=== PATIENT | female | born 1970 | race Hispanic/Latino ===

== ENCOUNTER 2017-04-26 19:19 | Emergency (ER) | payer SELFPAY ==
[~2017-04-26] VITALS: Ht 162.6 cm; Wt 89.1 kg
[2017-04-26 19:25] VITALS: BP 172/82; PULSE 65; RESP 15; O2SAT 100
--- NOTE | 2017-04-26 19:37 | ED.REPORT ---
HPI-Extremity Problem Lower Date of Service Apr 26, 2017 ED Provider: Ramiro Gilbert MD Pt is a 47 year old female with a recent fatty mass tissue removal in her left leg on 04/06/17 who presents to the ED c/o increasing leg redness at the site of her wound onset 3 days ago. She states that her scar was healing nicely up until a few days ago when it seemed like the scar was opening up. She states that she has increased the level of activity by walking a lot at her job. Additional symptoms include soreness at the site of the wound. She denies fever , chills, or tenderness to the area. Nursing Notes Stated Complaint: THIGH INNER RIGHT LEG/INFECTION-UC SENT Chief Complaint: Skin Rash/Abscess Nursing Notes Reviewed: Yes Allergies: Coded Allergies: No Known Allergies (Unverified , 04/26/17) General Time Seen by MD: 19:36 Chief Complaint Other (Redness at surgical site to the left upper thigh) Hx Obtained From: Patient Arrived By: Walk-in Onset Occurred: 3 days ago Symptom Duration: Constant Severity: Current: Mild Severity: Maximum: Mild Exacerbated by: Movement Recent Healthcare: Recent doctor visit Similar Sx Previous: No Past Medical History Past Medical History Fatty mass tissue removal to her left leg on 04/06/17 done at [facility] in [place], [place] Denies: Diabetes mellitus Social History Other Social History: Good social support 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 Physical Exam Initial Vital Signs Vital Signs (First) Date Time Temp Pulse Resp B/P Pulse Ox O2 Delivery O2 Flow Rate FiO2 04/26/17 19:25 37.1 65 15 172/82 100 Room Air Initial VS: Reviewed Head / Eyes: Atraumatic, Normocephalic Neck: Supple, Full range of motion Respiratory: No respiratory distress Upper Extremities: Vascular intact, Neuro intact, No swelling, No tenderness Neurologic: Alert, Oriented, Nonfocal Psychiatric: Mood/affect normal, Behavior normal, Normal thought content Lower Extremity / Pelvis / MS: Neurologic intact, Vascular intact Surgical wound on inner aspect of left thigh with minimal erythema and clear, serous drainage No induration, lymphangitic streaking, or tenderness to palpation Ankle / Foot: Neurologic intact, Vascular intact General/Constitutional: Awake, Alert Interpretation & Diagnostics US EXTREMITY SONOGRAM LIMITED: IMPRESSION: 1. Edema versus cellulitis within the left thigh. 2. No focal fluid collection to indicate abscess. Dictated by: Blessing Green M.D. on 04/26/2017 at 21:04 Approved by: Blessing Green M.D. on 04/26/2017 at 21:05 Lab Results Interpretation Result Diagram: 04/26/172023 Test 04/26/17 20:24 White Blood Count 7.1th/mm3 (3.8-10.1) Red Blood Count 3.66mil/mm3 (3.90-5.20) Hemoglobin 11.7g/dL (12.0-15.6) Hematocrit 33.5% (35.0-46.0) Mean Corpuscular Volume 91.5fL (81-100) Mean Corpuscular Hemoglobin 32.0pg (27.0-35.0) Mean Corpuscular Hemoglobin Concent 34.9% (32.0-37.0) Red Cell Distribution Width 11.7% (12.3-15.4) Platelet Count 208bil/L (150-400) Neutrophils (%) (Auto) 62.9% (40-74) Lymphocytes (%) (Auto) 21.6% (14-46) Monocytes (%) (Auto) 9.1% (4-12) Eosinophils (%) (Auto) 6.0% (0-5) Basophils (%) (Auto) 0.3% (0-3) Hold Purple Top Tube Received (Received) Hold [place] Top Tube Received (Received) Hold [place] Top Tube Received (Received) Re-Eval/Medical Decision Source of Hx: Old records Re-Evaluation/Progress : Time of Eval: 20:57 Re-Evaluation/Progress Note: Patient rechecked. Discussed plan for discharge. Patient understands and agrees with plan. F/U instructions and RTER warnings given. All questions addressed at this time. Counseled Regarding: Diagnosis, Lab results, Need for follow-up, When/why to return to ED Discharge & Departure Impression: Primary Impression: Cellulitis Site of cellulitis: extremity Site of cellulitis of extremity: lower extremity Laterality: left Qualified Code: L03.116 - Cellulitis of left lower limb Disposition: Home Discharge Condition All VS Reviewed: Yes Condition: Stable Patient Instructions: Cellulitis (DC) Additional Instructions: Emergency department evaluation today included interview, examination, lab and ultrasound of left leg to rule out abscess. There is no abscess seen on ultrasound, examination and labs are reassuring, there appears to be a very early infection at the operative site. We are starting cephalexin 500 mg 4 times a day. Take all the antibiotics, return to the emergency department for fevers shaking chills increasing redness or swelling in the thigh. Follow up in urgent care or return to emergency department if not better within 48 hours. Keep the incision site covered. Scribe Attestation Portions of this note were transcribed by Italia Trotter. I, Dr. Gilbert, personally performed the history, physical exam and medical decision-making; I reviewed and confirmed the accuracy of the information in the transcribed note. Ramiro Gilbert MD Apr 26, 2017 19:37 Italia Trotter Apr 26, 2017 19:48
[2017-04-26 20:50] LABS: BASOPHILS % (AUTO) 0.3 % (0-3); MONOCYTES % (AUTO) 9.1 % (4-12); Mean Corpuscular Volume 91.5 fL (81-100); NEUTROPHILS % (AUTO) 62.9 % (40-74); Platelet Count 208 bil/L (150-400)
--- NOTE | 2017-04-26 21:06 | DRSVH ---
PROCEDURE: US EXTREMITY SONOGRAM LIMITED ([id number]) INDICATIONS: eval L thigh surgical wound for abscess TECHNIQUE: Real-time scanning was performed of the left thigh, with image documentation. COMPARISON: None. FINDINGS: Diffuse subcutaneous hypoechogenicity. No focal fluid collection. IMPRESSION: 1. Edema versus cellulitis within the left thigh. 2. No focal fluid collection to indicate abscess. Dictated by: Blessing Green M.D. on 04/26/2017 at 21:04 Approved by: Blessing Green M.D. on 04/26/2017 at 21:05
[2017-04-26] MEDS ORDERED: _Cephalexin 500 mg Capsule PO SCH (21:30)
[2017-04-26 21:40] VITALS: BP 117/50; PULSE 72; RESP 20; O2SAT 100
== END 2017-04-26 21:40 | disposition home or self-care (01) ==
LOC: SED 19:19
DX: L03.116 Cellulitis of left lower limb (principal); Z98.890 Other specified postprocedural states